=== PATIENT | male | born 1950 | race Caucasian/White ===

== ENCOUNTER → 2024-12-24 11:12 | Outpatient (CLI) | payer MEDICARE, SELFPAY ==
[2024-12-24 19:34] LABS: Alanine Aminotransferase 26 IU/L (<50); Albumin 4.6 g/dL (3.5-5.0); Albumin Globulin Ratio 2.2 (1.0-2.8); Alkaline Phosphatase 78 U/L (38-126); Aspartate Aminotransferase 36 IU/L (17-59); Bilirubin Total 1.1 mg/dL (0.2-1.3); Bilirubin Unconjugated 0.6 mg/dL (0.0-1.1); Globulin 2.1 g/dL (1.7-4.1); HEMOLYSIS < 15 (0-50); Total Protein 6.7 g/dL (6.3-8.2)
[2024-12-24 20:14] LABS: Prostate Specific Antigen 4.27 ng/mL (0.10-4.00)
== END ==
PROVIDERS: Nurse Practitioner; Visit Provider Nurse Practitioner
DX: N40.1 Benign prostatic hyperplasia with lower urinary tract symptoms (principal); I48.0 Paroxysmal atrial fibrillation
CPT/HCPCS: 80076; 84153

== ENCOUNTER → 2025-01-19 13:57 | Outpatient (CLI) | payer MEDICARE, SELFPAY ==
[2025-01-19 19:59] LABS: Estimated Glomerular Filt Rate > 60 mL/min (>60)
[2025-01-19 20:36] LABS: Prostate Specific Antigen 4.13 ng/mL (0.10-4.00)
== END ==
PROVIDERS: Urology
DX: R31.0 Gross hematuria (principal); N40.1 Benign prostatic hyperplasia with lower urinary tract symptoms
CPT/HCPCS: 82565; 84153

== ENCOUNTER → 2025-05-31 12:37 | Outpatient (CLI) | payer MEDICARE, SELFPAY | PROVIDERS: Visit Provider Family Medicine | DX: R39.89 Other symptoms and signs involving the genitourinary system (principal); N40.1 Benign prostatic hyperplasia with lower urinary tract symptoms | CPT/HCPCS: 87086 ==